=== PATIENT | male | born 1955 | race Caucasian/White ===

== ENCOUNTER → 2021-06-01 08:07 | Outpatient (CLI) | payer BC, SELFPAY | PROVIDERS: PCP Family Medicine; Visit Provider Family Medicine | DX: Z20.822 Contact with and (suspected) exposure to COVID-19 (principal) | CPT/HCPCS: C9803; U0003; U0005 ==

== ENCOUNTER → 2021-06-05 08:31 | Outpatient (CLI) | payer BC, SELFPAY | PROVIDERS: PCP Family Medicine; Visit Provider Nurse Practitioner | DX: Z20.822 Contact with and (suspected) exposure to COVID-19 (principal) | CPT/HCPCS: C9803; U0003; U0005 ==

== ENCOUNTER → 2021-06-07 14:23 | Outpatient (CLI) | payer BC, SELFPAY | PROVIDERS: PCP Family Medicine; Visit Provider Family Medicine | DX: Z20.822 Contact with and (suspected) exposure to COVID-19 (principal) | CPT/HCPCS: C9803; U0003; U0005 ==

== ENCOUNTER → 2021-06-13 11:16 | Outpatient (CLI) | payer BC, SELFPAY | PROVIDERS: PCP Family Medicine; Visit Provider Family Medicine | DX: Z20.822 Contact with and (suspected) exposure to COVID-19 (principal) | CPT/HCPCS: C9803; U0003; U0005 ==

== ENCOUNTER → 2021-12-02 11:38 | Outpatient (CLI) | payer BC, SELFPAY | PROVIDERS: PCP Family Medicine; Visit Provider Family Medicine | DX: U07.1 COVID-19 (principal) | CPT/HCPCS: C9803; U0003; U0005 ==

== ENCOUNTER → 2021-12-25 07:44 | Outpatient (CLI) | payer BC, SELFPAY ==
--- NOTE | 2021-12-25 07:48 | CA_ITS ---
APPROVED REPORT EXAM: Comprehensive 2D, Doppler, and color-flow Echocardiogram Bike Mechanic: Svitlana Almaraz CRT Ht: 5 ft 11 in Wt: 210lbs BSA: 2.15 BP: 130/80 mmHg Indications: Hypertension/HDD 2D Dimensions LVOT 2.10 cm (M/F) 1.5-2.5 LA Volume 54.70 mL LA Volume Index 25.40 mL/m2 (M/F) 16-34 M-Mode Dimensions RVDd 2.40 cm (0.9-2.6) LA Diam 4.84 cm (1.9-4.0) LVDd 5.44 cm (3.5-5.7) Ao Diam 3.66 cm (2.0-3.7) LVDs 3.40 cm (3.5-5.7) IVSd 2.11 cm (0.6-1.1) PWd 1.11 cm (0.6-1.1) EF (Teich) 67.00% FS 37.50% EDV (Teich) 143.70 mL TAPSE 2.98 (<1.7) ESV (Teich) 47.40 mL LV Diastology E Decel Time 127.00 (160-240 msec) E/A Ratio 1.83 MED E' 6.90 (< 7 cm/sec) MED A' 10.20 cm/s E'/MED E' Ratio 14.88 (>14) LAT E' 6.60 (<10 cm/sec) LAT A' 9.30 cm/s E/LAT E' Ratio 15.56 (>14) Aortic Valve LVOT Max 169.00 (70-110 cm/s) LVOT VTI 33.24 cm AoV Peak Ivan. 182.00 (50-130 cm/s) AO Peak GR. 13.30 mmHg AO Mean GR. 5.70 (<5 mmHg) AO VTI 34.25 (18-25 cm) BOLIVAR (VTI) 3.36 (2.5-4.5 cm2) Mitral Valve MV E Max Ivan. 103.00 (40-130 cm/s) MV A Velocity 56.00 (40-130 cm/s) E/A Ratio 1.83 MV Decel. Time 127.00 (160-240 ms) MV PHT 37.00 ms Pulmonary Valve PV Peak Velocity 192.00 (50-150 cm/s) Tricuspid Valve TR P. Velocity 314.00 cm/s RAP Estimate 10.00 mmHg RVSP 49.50 mmHg Left Ventricle Weekly difficult study because of the patient factors and poor acoustic windows. Left atrium is mildly enlarged, left ventricle is normal size, mild concentric left ventricular hypertrophy, estimated ejection fraction 55% with no regional wall motion abnormality, diastolic parameters are inconclusive. Right Ventricle Right atrium and right ventricle are mildly enlarged with normal contractility. Aortic Valve Aortic valve is minimally thickened and fibrosed there is no aortic stenosis aortic insufficiency. Mitral Valve Mitral valve grossly normal, there is trace mitral regurgitation. Tricuspid Valve Tricuspid valve grossly normal, there is trace tricuspid regurgitation, tricuspid regurgitation jet velocity is inadequate for calculation of the right ventricular systolic pressure. Pulmonic Valve Pulmonic valve is poorly visualized. Great Vessels Aortic root is normal size. Inferior vena cava is poorly visualized. Pericardium No significant pericardial effusion noted. Conclusion 1. Technically difficult study because of the patient factors and poor acoustic windows. 2. Mild biatrial enlargement, normal left ventricular size, mild concentric left ventricular hypertrophy, estimated ejection fraction 55% with no regional wall motion abnormality, diastolic parameters are inconclusive. 3. Mildly enlarged right ventricle with normal contractility. 4. Trace mitral and tricuspid regurgitation. 5. No significant pericardial effusion noted. Electronically signed by : Kerwin Gonzáles MD 12/25/2021 20:05:38
--- NOTE | 2021-12-25 07:49 | CA_ITS ---
FINAL REPORT TECHNIQUE: Color Doppler, duplex Doppler and palmer scale sonography of the bilateral neck arterial vasculature was performed. Velocities were measured in the carotid arteries. Stenosis evaluation based on the validated velocity criteria. CLINICAL HISTORY: .Bruit, HTN FINDINGS: The peak systolic velocity of the right common carotid artery is 162 cm/s. The peak systolic velocity of the right internal carotid artery is 93 cm/s and end diastolic velocity 18 cm/s. The ICA/CCA ratio is 1.0. No significant plaque is present. The right external carotid artery is patent. The right vertebral artery is patent with antegrade flow. The peak systolic velocity of the left common carotid artery is 95 cm/s. The peak systolic velocity of the left internal carotid artery is 102 cm/s and end diastolic velocity 33 cm/s. The ICA/CCA ratio is 1.2. No significant plaque is present. The left external carotid artery is patent.The left vertebral artery is patent with antegrade flow. IMPRESSION: No evidence of bilateral carotid stenosis. Bilateral patent vertebral arteries with antegrade flow. Reviewed, Interpreted and Dictated by David Lopez III, MD Transcribed by Isatu Joshua Authenticated and . [facility]
== END ==
PROVIDERS: PCP Family Medicine; Visit Provider Family Medicine
DX: I35.8 Other nonrheumatic aortic valve disorders (principal); R09.89 Other specified symptoms and signs involving the circulatory and respiratory systems
CPT/HCPCS: 93306; 93880

== ENCOUNTER 2022-08-22 06:38 | Day surgery (SDC) | payer BC, SELFPAY ==
[2022-08-20 13:55] VITALS: BMI 28.5
[2022-08-22 07:07] VITALS: BP 155/78; PULSE 68; RESP 18; TEMP 36.9; O2SAT 98
--- NOTE | 2022-08-22 07:17 | P.PN_ITS ---
[facility] Disclaimer: The information contained in this section may have been updated after the patient was seen, as this information can be updated by other users. Medical History Allergies Hypertension Surgical History History of appendectomy Family History Other Family history of acute heart failure Family history of cancer Social History Smoking Status: Never smoker alcohol intake: never substance use type: denies use current occupational status: employed Travel in the last 8 weeks: None household members: family housing: house marital status: education level: high school caffeine: Yes special brenda needs: No agree to transfusion: No do you feel safe at home: Yes victim of physical abuse: No victim of emotional abuse: No victim of sexual abuse: No would you like helpful sources: No [facility] Anesthesia Checklist Patient Identification Patient Identification: Arm Band Structural Data Admitted From: Home Planned Operative Procedure/s: colonoscopy Consent for Planned Operative Procedure(s) Verified: Yes Verified Documents: Surgical Consent and History and Physical NPO Status Verified Time NPO: 00:00 Additional verifications Anesthesia Reactions: No Airway Assessment C-Spine Mobility Assessed: Yes TMJ Mobility Assessed: Yes Dentition: Good Dentition Neurological Assessment Level of Consciousness: Awake and Alert Anesthesia Plan Anesthesia Risk discussed: Yes Anesthesia Plan: Verified ASA Class: II Anesthesia Type: MAC
[2022-08-22 07:23] VITALS: O2SAT 98
--- NOTE | 2022-08-22 08:09 | HMH.SCOPE ---
Procedure: Date: 08/22/22 Patient Date of :: 1955 Procedure Performed:: Total colonoscopy to terminal ileum with polypectomy using snare and biopsy Indications:: Patient is a 66-year-old male. He has had a couple previous colonoscopies in [place]. Exact details are unknown. Apparently first colonoscopy he had a large polyp. He was scheduled for follow-up colonoscopy Performing Provider:: David Novoa MD Referring Provider:: Jesus Ornelas Sedation:: MAC sedation Procedure:: Patient history was obtained and appropriate physical examination was performed. Patient's medications and allergies were reviewed. Informed consent was obtained after explaining the benefits, alternatives, and risks of the procedure including, but not limited to, bleeding, perforation, missed lesions, and adverse reaction to anesthesia medications. Patient was transported to endoscopy procedure room. Patient was connected to monitoring devices. Throughout the procedure the patient's blood pressure, pulse, and oxygen saturations were monitored continuously. Patient identification and planned procedure were verified by the staff. Patient was positioned in lateral decubitus position. Digital anorectal exam was performed. Variable stiffness Olympus colonoscope was inserted and advanced under direct visualization to the cecum. Adequacy of the colonic preparation was noted. The colonoscope was advanced a short distance into the terminal ileum. The colonoscope was then slowly withdrawn while carefully examining the color, texture, anatomy, and integrity of the mucosoa circumferentially. Within the rectum retroflexion was performed. Colonoscope was then withdrawn. Findings:: Colonic preparation was good although there was some liquid stool which was suctioned free. In the proximal transverse colon there were a couple of adenomatous polyps adjacent to 1 another removed with cold cutting snare at once. In the distal transverse colon there was a diminutive mucosal irregularity which was removed with a biopsy. Descending colon there was an adenomatous appearing sessile polyp removed with cold snare and adjacent probable polyp removed with biopsy forceps. There were multiple hyperplastic appearing rectosigmoid polyps removed with biopsy forceps. He had pandiverticulosis. Impression: Pandiverticulosis Polyps as noted above (total of 9 possible polyps removed however rectosigmoid polyps appeared hyperplastic) Recommendations:: Follow-up colonoscopy pending pathology. Potentially 3 years Complications:: None immediately apparent Estimated blood obtained (mL): 2
[2022-08-22 08:10] VITALS: BP 124/76; PULSE 81; RESP 14; TEMP 36.4; O2SAT 92
[2022-08-22 08:20] VITALS: BP 122/78; PULSE 81; RESP 15; O2SAT 92
[2022-08-22 08:30] VITALS: BP 125/74; PULSE 71; RESP 16; O2SAT 96
[2022-08-22 08:39] VITALS: BP 142/82; PULSE 75; RESP 17; O2SAT 95
== END 2022-08-22 08:41 | disposition home or self-care (01) ==
PROVIDERS: PCP Family Medicine; Visit Provider Surgery
PROC: 0DJD8ZZ Inspection of Lower Intestinal Tract, Via Natural or Artificial Opening Endoscopic (ICD-10-PCS; CPT 45380; principal; 2022-08-22 07:30)
DX: Z12.11 Encounter for screening for malignant neoplasm of colon (principal); Z86.010 Personal history of colon polyps; D12.3 Benign neoplasm of transverse colon; D12.4 Benign neoplasm of descending colon; D12.7 Benign neoplasm of rectosigmoid junction; Z79.899 Other long term (current) drug therapy
CPT/HCPCS: 45380; 45385; 88305; J2704

== ENCOUNTER 2023-08-12 11:41 | Outpatient (CLI) | payer MEDICARE, BC, SELFPAY ==
--- NOTE | 2023-08-12 | CA_ITS ---
APPROVED REPORT Exam: Exercise Treadmill Technologist: Sabrina Winter Ht: 6 ft 0 in Wt: 234 lbs BSA: 2.28 m2 HR: 63 bpm BP: 156/78 mmHg Rhythm: NSR Indications: Chest pain Medical History Medications: Losartan,,,,, TAMSULOSIN,,,,, Montelukast,,,,, Acetaminophen,,,,, Latanoprost,,,,, Finasteride,,,,, INdapamide,,,,, Vitamin B Complex,,,,, TUmeric,,,,, FluTICASONE Propionate,,,,, Timolol maleate,,,,, Stress Test Details Test: Curt HR Resting HR: 80 bpm Max Heart Rate (APMHR): 154 bpm Max HR Achieved: 141 bpm Target HR (85% APMHR): 131 bpm % of APMHR: 92 Recovery HR: 91 bpm HR response to stress: Normal HR response to stress BP Resting BP: 156.0/78.0 mmHg Max BP: 208.0/88.0 mmHg Recovery BP: 161.0/88.0 mmHg BP response to stress: Abnormal hypertensive response to stress. ECG Resting ECG: Normal sinus rhythm Stress EC.[address] depression Arrhythmia: Occasional PVCs Recovery ECG: Return to baseline within 3 minutes of recovery Recovery Arrhythmia: Occasional PVCs Clinical Exercise duration: 06:00 min Highest Stage Achieved: Exercise capacity: 7.0 METs Overall Exercise Capacity for Age: Average Stress ECG Conclusion The patient was able to exercise for a total of 6 minutes, 0 seconds. He achieved a total of 7.0 METS. He has average exercise capacity compared to age and sex matched peers. He has normal HR, but exaggerated hypertensive BP, response to exercise. The test was eventually stopped due to dyspnea and generalized fatigue. Symptoms: No chest pain. Arrhythmias/Ectopy: Occasional PVC. ST-T Changes: Within normal ST response to exercise. Conclusion: Average exercise capacity. Hypertensive BP response to exercise. Normal GXT. Myoview images reported separately. Test Summary REST . . . . . . . Sitting REST . . . . . . . Standing REST 07:30 0.0 0.0 80 . 156/ 78 . . Stage 1 01:00 10.0 1.7 108 . . . . Stage 1 02:00 10.0 1.7 115 . . . . Stage 1 03:00 10.0 1.7 112 . 188/ 80 . . Stage 2 01:00 12.0 2.5 126 . . . . Stage 2 . . . . . . . Myoview Injected Stage 2 02:00 12.0 2.5 135 . . . . Stage 2 03:00 12.0 2.5 140 . . . Stop exercise at 06:00 RECOVERY 01:00 0.0 0.0 115 . . . . RECOVERY 02:00 0.0 0.0 91 . 208/ 88 . . RECOVERY 03:00 0.0 0.0 93 . 173/ 87 . . RECOVERY 04:00 0.0 0.0 91 . 173/ 87 . . RECOVERY 05:00 0.0 0.0 88 . 161/ 88 . . RECOVERY 05:23 0.0 0.0 89 . 161/ 88 . . Electronically signed by : Nancy Goldstein MD 08/13/2023 11:18:01
--- NOTE | 2023-08-12 11:49 | NM_ITS ---
APPROVED REPORT Exam: Nuclear Stress Test Indication: HTN, FM HX, C.P. Patient Location: Outpatient Stress Tech: Sabrina Winter HI Tech:Alissa SherwoodRENAE RT (R)(N)(M) Ht: 6 ft 1 in Wt: 240 lbs HR: 63 bpm BP: 156/78 mmHg BSA: 2.33 m2 Rhythm: NSR TID: 0.88 BMI: 31.6 History: HTN, FM HX, C.P. Procedure: Patient exercised on Curt protocol 6:00 minutes and sec, resting heart rate 63 bpm, resting blood pressure 156/78 mmHg, with exercise maximum heart rate achived was 136 bpm which is 92 % of the maximum predicted heart rate and blood pressure was 188/80 mmHg. Test was stopped due to FATIGUE. Patient has average exercise capacity, achieved 7.8 METs of workload on treadmill, the blood pressure response to exercise was hypertensive. Cardiac Stress and Resting SPECT Images: Cardiac Stress and Resting SPECT images were obtained using technetium 99m Myoview 31.5 mCi stress and 10.64 mCi at rest. Resting and stress imaging in supine and prone positions demonstrate no evidence of fixed or reversible perfusion defects. Gated imaging demonstrates normal global and regional LV systolic function. LVEF is calculated at 61%. Conclusion: No evidence of fixed or reversible perfusion defects. Gated imaging demonstrates normal global and regional LV systolic function. LVEF is calculated at 61%. Of note, the patient had an exaggerated hypertensive BP response to exercise (SBP > 200 mmHg). BP control is recommended. Electronically signed by : Nancy Goldstein MD 08/13/2023 11:19:55
--- NOTE | 2023-08-12 12:03 | CA_ITS ---
APPROVED REPORT EXAM: Comprehensive 2D, Doppler, and color-flow Echocardiogram Drywall Stripper: Amita Faust RDCS Ht: 6 ft 0 in Wt: 234lbs BSA: 2.28 BP: 146/80 mmHg Indications: CP,RO,HHD M-Mode Dimensions RVDd 2.94 cm (0.9-2.6) LA Diam 4.72 cm (1.9-4.0) LVDd 6.32 cm (3.5-5.7) LVDs 4.39 cm (3.5-5.7) IVSd 0.89 cm (0.6-1.1) PWd 0.80 cm (0.6-1.1) EF (Teich) 57.00% FS 30.50% EDV (Teich) 202.60 mL ESV (Teich) 87.20 mL LV Diastology E Decel Time 250 (160-240 msec) E/A Ratio 1.3 Mitral Valve MV E Max Ivan. 85.0 (40-130 cm/s) MV A Velocity 68.0 (40-130 cm/s) E/A Ratio 1.25 MV PHT 73.0 ms Left Ventricle The left ventricle is normal size. The left ventricular systolic function is normal. The left ventricular ejection fraction is within the normal range. There is normal left ventricular wall thickness. There is normal LV segmental wall motion. The left ventricular diastolic function is normal. LVEF is 55%. Right Ventricle Right ventricle is mildly to moderately dilated. The right ventricular systolic function is normal. There is increased RV wall thickness. Atria The left atrium size is normal. Right atrium is mildly dilated. The interatrial septum is not well visualized. Aortic Valve The aortic valve opens well. There is no aortic valvular stenosis. Mild aortic regurgitation. Mitral Valve The mitral valve is normal in structure. No evidence of mitral valve stenosis. Trace mitral regurgitation. Tricuspid Valve The tricuspid valve leaflets are thin and pliable. Mild tricuspid regurgitation. RVSP is 25 mmHg + RA pressure. Pulmonic Valve The pulmonary valve is normal in structure. Trace pulmonic regurgitation. Great Vessels The aortic root is normal in size. The ascending aorta is mildly dilated, measuring 3.8 cm in diameter. The IVC is not well visualized. Pericardium There is no pericardial effusion. Other Information Study Quality: Fair Conclusion Normal LV systolic function. Mild to moderate RV dilation with normal RV function. Mild AI. Mild TR. Ascending aorta mildly dilated (diameter 3.8 cm). Electronically signed by : Nancy Goldstein MD 08/15/2023 19:42:04
[2023-08-12] MEDS: ISOTOPE MYOVIEW (PER STUDY) 1 DOSE IV (13:25)
[2023-08-12] MEDS: SODIUM CHLORIDE 0.9% 10ML SYR (RAD ONLY) 10 ML IV ×2 (13:25)
== END 2023-08-12 23:59 ==
PROVIDERS: PCP Family Medicine; Visit Provider Family Medicine
DX: G47.31 Primary central sleep apnea; R07.9 Chest pain, unspecified
CPT/HCPCS: 78452; 93017; 93018; 93306; A9502

== ENCOUNTER 2023-08-28 07:16 | Day surgery (SDC) | payer MEDICARE, BC, SELFPAY ==
[2023-08-27 09:12] VITALS: BMI 34.7
[2023-08-28 07:35] VITALS: BP 154/93; PULSE 62; RESP 18; TEMP 36.3; O2SAT 98
[2023-08-28] MEDS: LACTATED RINGERS 1000ML 1,000 ML 100 ML IV (07:41)
--- NOTE | 2023-08-28 08:01 | HMH.SCOPE ---
Procedure: Date: 08/28/23 Patient Date of :: 1955 Procedure Performed:: Total colonoscopy to terminal ileum with numerous polypectomy using snare and biopsy forceps Indications:: Patient is a 67-year-old male with a family history of colon cancer. He has previously had colonoscopies in [place]. Exact details are unknown. I performed colonoscopy approximately 1 year ago on 08/22/2022 at which time he had 6 tubular adenomas and 2 sessile serrated adenomas. Performing Provider:: David Novoa MD Referring Provider:: Jesus Ornelas Sedation:: MAC sedation Procedure:: Patient history was obtained and appropriate physical examination was performed. Patient's medications and allergies were reviewed. Informed consent was obtained after explaining the benefits, alternatives, and risks of the procedure including, but not limited to, bleeding, perforation, missed lesions, and adverse reaction to anesthesia medications. Patient was transported to endoscopy procedure room. Patient was connected to monitoring devices. Throughout the procedure the patient's blood pressure, pulse, and oxygen saturations were monitored continuously. Patient identification and planned procedure were verified by the staff. Patient was positioned in lateral decubitus position. Digital anorectal exam was performed. Variable stiffness Olympus colonoscope was inserted and advanced under direct visualization to the cecum. Adequacy of the colonic preparation was noted. The colonoscope was advanced a short distance into the terminal ileum. The colonoscope was then slowly withdrawn while carefully examining the color, texture, anatomy, and integrity of the mucosoa circumferentially. Within the rectum retroflexion was performed. Colonoscope was then withdrawn. . Colonoscope was advanced to the cecum with some minor difficulty due to significant redundancy and floppiness of the sigmoid colon. Colonic preparation was poor to fair. Fair visualization was achieved with high-volume irrigation and suctioning. He had some degree of pandiverticulosis. In the cecum adjacent to the appendiceal orifice there was a small diminutive adenomatous appearing polyp removed with cold snare. In the ascending colon there were a couple of moderate irregular sessile polyps removed with cold snare. In the transverse colon there was a moderate adenomatous polyp removed with cold snare. In the descending colon there were a couple of small polyps removed with cold snare. In proximal sigmoid colon there were a couple of hyperplastic appearing polyps removed with biopsy forceps. The rectosigmoid there were hyperplastic appearing polyps removed with biopsy forceps. . Findings:: Fair colonic preparation despite high-volume trans colonoscopic irrigation and suctioning Polyps as noted above, he had a total of 10 polyps. 6 of these appeared likely adenomatous. Recommendations:: Follow-up colonoscopy pending pathology. Likely 2 years given the fair preparation and multiple polyps. Complications:: None immediately apparent Estimated blood obtained (mL): 2 Colonoscopy Component Colonoscopy Component Was a colonoscopy performed during today's procedure?: Yes Recommended follow up colonoscopy of at least 10 years?: No If no, follow up colonoscopy recommended in ___ years?: 2 Reason for not recommending >/= 10 yr follow-up interval?: See above
--- NOTE | 2023-08-28 08:07 | EXP.ANES.CKL ---
[facility] Disclaimer: The information contained in this section may have been updated after the patient was seen, as this information can be updated by other users. Medical History Allergies Hypertension RO (obstructive sleep apnea) Surgical History History of appendectomy Family History Other Family history of acute heart failure Family history of cancer Social History Smoking Status: Never smoker alcohol intake: never substance use type: denies use current occupational status: retired Travel in the last 8 weeks: None household members: family housing: house marital status: education level: high school caffeine: Yes special brenda needs: No agree to transfusion: No do you feel safe at home: Yes victim of physical abuse: No victim of emotional abuse: No victim of sexual abuse: No would you like helpful sources: No [facility] Anesthesia Checklist Patient Identification Patient Identification: Arm Band and Verbal (Name & ) Structural Data Admitted From: Home Planned Operative Procedure/s: Colonoscopy Consent for Planned Operative Procedure(s) Verified: Yes NPO Status Verified Time NPO: 00:00 Additional verifications Anesthesia Reactions: No Airway Assessment Mallampati Score:: Class IV C-Spine Mobility Assessed: Yes TMJ Mobility Assessed: Yes Dentition: Good Dentition Neurological Assessment Level of Consciousness: Awake Hx Seizures: No Numbness or tingling in extremities: No Anesthesia Plan Anesthesia Risk discussed: Yes Anesthesia Plan: Verified ASA Class: II Anesthesia Type: MAC
[2023-08-28 08:16] VITALS: O2SAT 98
[2023-08-28 08:59] VITALS: BP 119/76; PULSE 70; RESP 14; TEMP 36.2; O2SAT 91
[2023-08-28 09:09] VITALS: BP 115/70; PULSE 70; RESP 16; O2SAT 94
[2023-08-28 09:19] VITALS: BP 107/75; PULSE 76; RESP 17; O2SAT 94
[2023-08-28 09:22] VITALS: BP 128/79; PULSE 59; RESP 17; O2SAT 95
== END 2023-08-28 09:23 | disposition home or self-care (01) ==
PROVIDERS: PCP Family Medicine; Visit Provider Surgery
PROC: 0DJD8ZZ Inspection of Lower Intestinal Tract, Via Natural or Artificial Opening Endoscopic (ICD-10-PCS; CPT 45378; principal; 2023-08-28 08:30)
DX: Z12.11 Encounter for screening for malignant neoplasm of colon (principal); Z86.010 Personal history of colon polyps; K63.5 Polyp of colon; D12.2 Benign neoplasm of ascending colon; K57.90 Diverticulosis of intestine, part unspecified, without perforation or abscess without bleeding; Z80.0 Family history of malignant neoplasm of digestive organs
CPT/HCPCS: 45380; 45385; 88305; J2704

== ENCOUNTER 2024-11-14 15:52 | Outpatient (CLI) | payer MEDICARE, BC, SELFPAY ==
--- OUTSIDE RECORDS SUMMARY | 2024-11-14 15:56 | XMS_ITS ---
Author Organization Unknown [facility] Start Date Provider Encounter for Check-up [id number] [facility]
--- NOTE | 2024-11-14 15:58 | XR_ITS ---
FINAL REPORT CLINICAL HISTORY: pain x 1 month, no known trauma FINDINGS: LEFT FOOT Three views were obtained. There is no fracture or dislocation. There are mild degenerative changes. No soft tissue abnormality is identified. IMPRESSION: No acute process. Reviewed, Interpreted and Dictated by Mikey Otero MD Transcribed by Sonal Preston Authenticated and [facility]
--- NOTE | 2024-11-14 15:58 | XR_ITS ---
FINAL REPORT CLINICAL HISTORY: EFFUSION LEFT KNEE FINDINGS: LEFT KNEE Three views were obtained. There is no fracture or dislocation. There are mild degenerative changes. No soft tissue abnormality is identified. IMPRESSION: No acute process. Reviewed, Interpreted and Dictated by Mikey Otero MD Transcribed by Sonal Preston Authenticated and . [facility]
--- NOTE | 2024-11-14 15:58 | XR_ITS ---
FINAL REPORT CLINICAL HISTORY: pain x 1 month, no known trauma FINDINGS: RIGHT FOOT Three views were obtained. There is no fracture or dislocation. The joint spaces appear normal. No soft tissue abnormality is identified. IMPRESSION: No acute process. Reviewed, Interpreted and Dictated by Mikey Otero MD Transcribed by Sonal Preston Authenticated and [facility]
== END 2024-11-14 23:59 | disposition home or self-care (01) ==
LOC: RAD 15:54
PROVIDERS: PCP Family Medicine; Visit Provider Family Medicine
DX: M79.672 Pain in left foot (principal); M79.671 Pain in right foot; M25.462 Effusion, left knee
CPT/HCPCS: 73562; 73630

== ENCOUNTER 2025-03-10 07:28 | Outpatient (CLI) | payer MEDICARE, BC, SELFPAY ==
--- OUTSIDE RECORDS SUMMARY | 2024-07-11 06:15 | XMS_ITS ---
Author Organization [facility] Address [address] [facility] [address] [facility] [address] [place] [id number] Care Team Providers Care Mountain Or Glacier Guide Name Role Phone Silas Ornelas Primary Care Provider Allergies No Known Allergies Results Component Value Reference Range Notes Influenza Screen (in house) Reviewed date:07/11/2024 11:53:49 AM Interpretation:Negative Performing Lab: Notes/Report: Negative results Neg CBC Fingerstick (in house) Reviewed date:07/11/2024 11:54:35 AM Interpretation: Performing Lab: Notes/Report: wbc 4.9 3.5 - 10 lym 18.7% 15 - 50 mid 6.9% 2 - 15 gran 74.4% 35 - 80 rbc 4.13 3.5 - 5.5 hgb 13.0 11.5 - 16.5 hct 38.8 35 - 55 mcv 94.0 75 - 100 mch 31.6 25 - 35 mchc 33.6 31 - 38 plat 250 100 - 400 Covid test (in house) Reviewed date:07/11/2024 11:54:12 AM Interpretation:Negative Performing Lab: Notes/Report: Negative Result: Neg REASON FOR VISIT cough Medications Medication SIG (Take, Route, Frequency, Duration) Notes Start Date End Date Status Ketoconazole 2 % 1 trena applied topica lly once a day Active Singulair 10 MG 1 tab(s) orally once a day; Duration: 90 days Active Sildenafil Citrate 20 MG 3 Orally As nee ded; Duration: 30 day(s) Active Fluticasone Propionate 50 MCG/ACT INSTILL 2 SPRAYS IN EACH NOSTRIL EVERY DAY; Duration: 30 Active CPAP machine and supplies as directed 10/22/2023 Active Latanoprost 0.005 % 1 drop into each eye in the evening Ophthalmic at bedtime Active Timolol Maleate (Once-Daily) 0.5 % 1 drop into each eye Ophthalmic each morning Active Turmeric Curcumin 500 MG 2 cap(s) Orally daily Active B-12 1000 MCG 1 tab(s) orally once a day; Duration: 30 day(s) 06/03/2021 Active Indapamide 2.5 mg 1 tablet in the morn ing Orally Once a day; Duration: 90 days Active Tamsulosin HCl 0.4 MG 1 cap(s) orally on ce a day; Duration: 90 days Active amLODIPine Besylate 2.5 MG 1 tablet Oral ly Once a day; Duration: 90 days Active Losartan Potassium 100 MG 1 tab(s) orall y once a day; Duration: 90 days Active Ventolin HFA 108 (90 Base) MCG/ACT 2 inhalations Inhalation Three times a day 07/11/2024 Active Vital Signs Blood pressure systolic 130 mm Hg 07/11/19 25 Blood pressure diastolic 80 mm Hg 025 Heart Rate 63 /min 07/11/2024 Height 71 in 07/11/2024 Weight 239.6 lbs 07/11/2024 BMI 33.41 kg/m2 07/11/2024 Encounters Encounter Location Date Provider [facility] [address] [facility] [address] [id number] 07/11/2024 Silas Ornelas Acute cough R05.1 ; Aortic heart murmur I35.8 ; RO on CPAP G47.33 and Primary hypertension I10 Assessments Encounter Date Diagnosis (ICD Code) Assessment Notes Treatment Notes Treatment Clinical Notes Section Notes 07/11/2024 Acute cough (ICD-10 - R05.1) 07/11/2024 Aortic heart murmur (ICD-10 - I35.8) 07/11/2024 RO on CPAP (ICD-10 - G47.33) 07/11/2024 Primary hypertension (ICD-10 - I10) Plan Of Treatment Medication Medication Name Sig Start Date Stop Date Notes Indapamide 2.5 mg 1 tablet in the morn ing Orally Once a day; Duration: 90 days Ventolin HFA 108 (90 Base) MCG/ACT 2 inhalations Inhalation Three times a day 07/11/2024 Next Appt Details Follow Up: 4 Weeks, Reason: Provider Name:Silas Chunalbert Lee er, 05/29/2025 10:15:00 AM, [address], [address], [place], [place], [id number], Progress Notes * MILLIE GONZALESDOB:1955 ( 69 yo M)Acc No.[id number]:07/11/2024 Progress Notes Patient: MILLIE JONES Provider: Silas Ornelas M.D. :1955 A ge:68 Y S ex:Male Date:07/11/2024 Address:[facility] [address] [facility], [facility], [id number] Subjective: * Chief Complaints: * 1 . Cough. * HPI: E NT/respiratory: The pt is here today with c/o sinus drainage, scratchy throat and dry cough for the past week. Pt denies any fever. 68 year old male presents with c/o sore throat. c/o cough. c/o post nasal drainage. Denies : Fever. D enies : Chest Pain. D enies : Short of Breath. * ROS: D ERMATOLOGY: no R yisel. n o H katelynn. G ASTROENTEROLOGY: no N ausea. n o V omiting. n o D iarrhea.? U ROLOGY: no D ifficulty urinating. n o B lood in urine. * Medical History: H ypertension, Seasonal allergies, Osteoarthritis, BPH, Carotid duplex 11/18/2021, Echocardiogram 11/18/2021. * Surgical History: C rushed Kidney Stones , Appendectomy , colonoscopy with polyp . * Family History: F ather: 84 yrs, diagnosed with Hypertension. M other: alive, diagnosed with Hypertension, Heart Disease. P aternal Grand Father: . P aternal Grand Mother: , diagnosed with Stroke. M aternal Grand Father: . M aternal Grand Mother: , diagnosed with Stroke. Father of sepsis, cellulitis of leg. * Social History: C affeine: yes, frequency:two or three soft drinks or tea daily. Exercise: yes. Home smoke detector use: yes. Past smoking status: never smoked. * Medications: T aking Turmeric Curcumin 500 MG Capsule 2 cap(s) Orally daily , Taking Timolol Maleate (Once-Daily) 0.5 % Solution 1 drop into each eye Ophthalmic each morning , Taking Latanoprost 0.005 % Solution 1 drop into each eye in the evening Ophthalmic at bedtime , Taking B-12 1000 MCG Tablet 1 tab(s) orally once a day , Taking Ketoconazole 2 % Cream 1 trena applied topically once a day , Taking Indapamide 2.5 mg Tablet 1 tablet in the morning Orally Once a day , Taking CPAP machine and supplies as directed , Taking Fluticasone Propionate 50 MCG/ACT Suspension INSTILL 2 SPRAYS IN EACH NOSTRIL EVERY DAY , Taking Sildenafil Citrate 20 MG Tablet 3 Orally As needed , Taking Singulair 10 MG Tablet 1 tab(s) orally once a day , Taking Losartan Potassium 100 MG Tablet 1 tab(s) orally once a day , Taking amLODIPine Besylate 2.5 MG Tablet 1 tablet Orally Once a day , Taking Tamsulosin HCl 0.4 MG Capsule 1 cap(s) orally once a day , Discontinued Zithromax Z-Janak 250 MG Tablet as directed Orally , Medication List reviewed and reconciled with the patient * Allergies: N .K.D.A. Objective: * Vitals: W t:239.6, Temp:98.4, BP:130/80, HR:63, Nurse:JOSE, Ht: 71, BMI:33.41. * Examination: G eneral Examination: General Appearance: N AD. H EENT: u nremarkable.?Oral cavity: n o lesions, mucosa moist and WNL, no erythema. N ghislaine: s upple, no lymphadenopathy. C hest: n ormal shape and expansion. H eart: R SR. L ungs: c lear to auscultation, no wheezes or rales. A bdomen: soft and nontender, no organomegaly or masses. N eurologic Exam: I ntact, gait normal. S kin: n ormal. P eripheral pulses: n ormal . B ack: mild dorsal kyphosis. E xtremities: n o leg edema. ? Assessment: * Assessment: 1. A cute cough - R05.1 (Primary) 2 . A ortic heart murmur - I35.8 ? 3 . O SA on CPAP - G47.33 4 . P rimary hypertension - I10 Plan: * Treatment: Value Reference Range r esults Neg * Tri Gonzales 07/11/2024 10: 45:14 AM > , Provider reviewed results while patient in office. ?LAB: CBC Fingerstick (in house) (Collection Date & Time - 07/11/2024)* Value Reference Range w bc 4.9 3.5 - 10 * l ym 18.7% 15 - 50 * m id 6.9% 2 - 15 * g ran 74.4% 35 - 80 * r bc 4.13 3.5 - 5.5 * h gb 13.0 11.5 - 16.5 * h ct 38.8 35 - 55 * m cv 94.0 75 - 100 * m ch 31.6 25 - 35 * m chc 33.6 31 - 38 * p lat 250 100 - 400 * Tri Gonzales 07/11/2024 10: 38:53 AM > , Provider reviewed results while patient in office. ?LAB: Covid test (in house) (Collection Date & Time - 07/11/2024)?Negative* Value Reference Range R esult: Neg * Tri Gonzales 07/11/2024 10: 44:49 AM > , Provider reviewed results while patient in office. 2.?Primary hypertension? Refill Indapamide Tablet, 2.5 mg, 1 tablet in the morning, Orally, Once a day, 90 days, 90 Tablet, Refills 1.?? * Procedure Codes: 8 7804 Flu Test- Nasal Swab, Modifiers: QW , 24849 COVID TEST IN HOUSE, Modifiers: QW , 41555 CAPILLARY BLOOD DRAW, 16685 CBC WITH AUTO DIFF * Follow Up: 4 Weeks * Images: Billing Information: * Visit Code: 44986 Office Visit, Est Pt., Level 4. * Procedure Codes: 89811 Flu Test- Nasal Swab. Modifiers: QW 16528 COVID TEST IN HOUSE. Modifiers: QW 56551 CAPILLARY BLOOD DRAW. 73896 CBC WITH AUTO DIFF. * Electronic signature of Silas Ornelas MD on 03/10/2025 at 07:32 AM EDT Sign off status: Pending * Provider: Silas Ornelas M.D. Date: 0 07/11/2024 Generated for Lisai jorden/Bob/eTnidasmitting on: 0 03/10/2025 07:32 AM EDT History and Physical Notes * HPI (History of Present Illness) Category Sub-Category Detail Notes Category Not es ENT/respiratory sore throat Short of Breath Chest Pain cough Fever post nasal drainage Examination Category Sub-Category Detail Notes Category Not es General Examination HEENT: unremarkable Heart: RSR Lungs: clear to auscultatio n, no wheezes or rales Abdomen: soft and nontender, no organomegaly or masses Extremities: no leg edema General Appearance: NAD Skin: normal Neurologic Exam: Intact, gait normal Neck: supple, no lymphaden opathy Oral cavity: no lesions, mucosa m oist and WNL, no erythema Peripheral pulses: normal Back: mild dorsal kyphosis Genitalia: Chest: normal shape and exp ansion
--- OUTSIDE RECORDS SUMMARY | 2024-08-26 06:00 | XMS_ITS ---
Author Organization [facility] Address [address] [place] [phone] Care Team Providers Care Thermal Cutter Helper Name Role Phone Silas Ornelas Primary Care Provider Allergies No Known Allergies Results Component Value Reference Range Notes P-Comprehensive Metabolic Pa gloria (CMP) Reviewed date:08/29/2024 11:39:27 AM Interpretation:Normal Performing Lab: Notes/Report: Test performed by [facility] [address] [place], [place] [address] [address] , [address], [place] [address] Stanislav Bender MD, Lace Winder CLIA: [id number] Sodium 142 135-145 mmol/L Potassium 4.0 3.5-5.3 mmol/L Chloride 105 97-108 mmol/L CO2 27 22-32 mmol/L Glucose 97 65-99 mg/dL BUN 21 8-23 mg/dL Creatinine 1.05 0.70-1.30 mg/dL Calcium 9.8 8.6-10.4 mg/dL eGFR by Creatinine 77 >59 mL/min/1.73m2 Protein 6.6 6.0-8.3 g/dL Albumin 4.4 3.5-5.3 g/dL Alkaline Phosphatase 57 40-129 IU/L ALT (SGPT) 33 <5-55 IU/L AST (SGOT) 25 <5-46 IU/L Bilirubin, Total 0.4 <0.2-1.2 mg/dL A/G Ratio 2.0 1.1-2.5 P-PSA Reviewed date:08/29/2024 11:39:27 AM Interpretation:Normal Performing Lab: Notes/Report: Test performed by [facility] [address] [facility] , [address], [place] [address] Stanislav Bender MD, Lace Winder CLIA: [id number] PSA 0.53 <4.00 ng/mL Please note this is an ultrasensitive PSA assay with a lower limit of detection of 0.014 ng/mL. This test is performed by the [employer] ECLIA methodology. Values obtained with different assay methods or kits cannot be directly compared. REASON FOR VISIT 6 month check Medications Medication SIG (Take, Route, Frequency, Duration) Notes Start Date End Date Status Promethazine-DM 6.25-15 MG/5ML 5 ml orally every 6 hours prn 07/13/2024 Active Turmeric Curcumin 500 MG 2 cap(s) Orally daily Active Ventolin HFA 108 (90 Base) MCG/ACT 2 inhalations Inhalation Three times a day 07/11/2024 Not-Taking Indapamide 2.5 mg 1 tablet in the morn ing Orally Once a day; Duration: 90 days Active Medrol 4 MG as directed orally daily; Duration: 6 days 07/13/2024 Active Sildenafil Citrate 20 MG 3 Orally As nee ded; Duration: 30 day(s) Active Singulair 10 MG 1 tab(s) orally once a day; Duration: 90 days Active Losartan Potassium 100 MG 1 tab(s) orall y once a day; Duration: 90 days Active amLODIPine Besylate 2.5 MG 1 tablet Orally Once a day; Duration: 90 days Active Tamsulosin HCl 0.4 MG 1 cap(s) orally on ce a day; Duration: 90 days Active Ketoconazole 2 % 1 trena applied topica lly once a day Active CPAP machine and supplies as directed 10/22/2023 Active Fluticasone Propionate 50 MCG/ACT INSTILL 2 SPRAYS IN EACH NOSTRIL EVERY DAY; Duration: 30 Active Latanoprost 0.005 % 1 drop into each eye in the evening Ophthalmic at bedtime Active B-12 1000 MCG 1 tab(s) orally once a day; Duration: 30 day(s) 06/03/2021 Active Timolol Maleate (Once-Daily) 0.5 % 1 drop into each eye Ophthalmic each morning Active Problems Problem Type SNOMED Code ICD Code Onset Dates Problem Status W/U Status Risk Notes Problem Pulmonary valve disorder (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) 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) Active confirmed Vital Signs Blood pressure systolic 130 mm Hg 08/26/19 25 Blood pressure diastolic 76 mm Hg 025 Heart Rate 67 /min 08/26/2024 Height 71 in 08/26/2024 Weight 240.0 lbs 08/26/2024 BMI 33.47 kg/m2 08/26/2024 Encounters Encounter Location Date Provider Diagnosis [facility] [address] [place] [address] [address] [place], [place] [id number] 08/26/2024 Silas Ornelas Primary hypertension I10 ; Benign prostatic hyperplasia with lower urinary tract symptoms N40.1 ; Aortic heart murmur I35.8 and Pulmonic valve murmur I37.8 Assessments Encounter Date Diagnosis (ICD Code) Assessment Notes Treatment Notes Treatment Clinical Notes Section Notes 08/26/2024 Primary hypertension (ICD-10 - I10) 08/26/2024 Benign prostatic hyperplasia with lower urinary tract symptoms (ICD-10 - N40.1) 08/26/2024 Aortic heart murmur (ICD-10 - I35.8) 08/26/2024 Pulmonic valve murmur (ICD-10 - I37.8) Plan Of Treatment Next Appt Details Follow Up: 6 Months, Reason: Provider Name:Silas Lee er, 05/29/2025 10:15:00 AM, [address] [place] [address], [address], [facility] [place], [phone], Progress Notes * MILLIE GONZALESDOB:1955 ( 69 yo M)Acc No.[id number]:08/26/2024 Progress Notes Patient: MILLIE JONES Provider: Silas Ornelas M.D. :1955 A ge:68 Y S ex:Male Date:08/26/2024 Address:[address] [place] [address], [id number] Subjective: * Chief Complaints: * 1 . 6 month check. * HPI: C ardiology: The patient is here for a check up on Hypertension and Hyperlipidemia. Pt states he is doing good and denies any new concerns. Pt is not fasting. Denies : Chest Pain. D enies : Short of Breath. D enies : Dizziness. D enies : Palpitations. * ROS: D ERMATOLOGY: no R yisel. [...] applied topically once a day , Taking CPAP machine and [...] 1 cap(s) orally once a day , Taking Indapamide 2.5 mg Tablet 1 tablet in the morning Orally Once a day , Taking Medrol 4 MG Tablet Therapy Pack as directed orally daily , Taking Promethazine-DM 6.25-15 MG/5ML Syrup 5 ml orally every 6 hours prn , Not-Taking Ventolin HFA 108 (90 Base) MCG/ACT Aerosol Solution 2 inhalations Inhalation Three times a day , Medication List reviewed and reconciled with the patient * Allergies: N .K.D.A. Objective: * Vitals: W t:240.0, Temp:98.2, BP:130/76, HR:67, Nurse:JOSE, Ht: 71, BMI:33.47. * Examination: G eneral Examination: General Appearance: N AD. H EENT: u nremarkable.?Oral cavity: n o lesions, mucosa moist and WNL, no erythema. N ghislaine: s upple, no lymphadenopathy. C hest: n ormal shape and expansion. H eart: R SR, I think the murmur is more pulmonic athan aortic. L ungs: c lear to auscultation, no wheezes or rales. A bdomen: soft and nontender, no organomegaly or masses. N eurologic Exam: I ntact, gait normal. S kin: n ormal. P eripheral pulses: n ormal . B ack: mild dorsal kyphosis. E xtremities: n o leg edema. Assessment: * Assessment: 1. P rimary hypertension - I10 (Primary) 2 . B enign prostatic hyperplasia with lower urinary tract symptoms - N40.1 3 . A ortic heart murmur - I35.8 ? 4 . P ulmonic valve murmur - I37.8 Plan: * Treatment: Value Reference Range A /G Ratio 2.0 1.1-2.5 - * A lbumin 4.4 3.5-5.3 - g/dL * A lkaline Phosphatase 57 40-129 - IU/L * A LT (SGPT) 33 <5-55 - IU/L * A ST (SGOT) 25 <5-46 - IU/L * B ilirubin, Total 0.4 <0.2-1.2 - mg/dL * B UN 21 8-23 - mg/dL * C alcium 9.8 8.6-10.4 - mg/dL * C hloride 105 97-108 - mmol/L * C O2 27 22-32 - mmol/L * C reatinine 1.05 0.70-1.30 - mg/dL * G lucose 97 65-99 - mg/dL * P otassium 4.0 3.5-5.3 - mmol/L * S odium 142 135-145 - mmol/L * P rotein 6.6 6.0-8.3 - g/dL * e GFR by Creatinine 77 >59 - mL/min/1.73m2 * Tri Gonzales 08/29/2024 11:3 9:10 AM >Patient informed of normal results. 2.?Benign prostatic hyperplasia with lower urinary tract symptoms?LAB: P-PSA (Collection Date & Time - 08/26/2024 10:19 AM)?Normal* Value Reference Range P SA 0.53 <4.00 - ng/mL * Tri Gonzales 08/29/2024 11:3 9:10 AM >Patient informed of normal results. * Procedure Codes: G 2211 Complex e/m visit add on, 3075F SYST BP GE 130 - 139MM HG, 3078F DIAST BP < 80 MM HG * Follow Up: 6 Months * Images: Billing Information: * Visit Code: 22449 Office Visit, Est Pt., Level 4. * Procedure Codes: G2211 Complex e/m visit add on. 3075F SYST BP GE 130 - 139MM HG. 3078F DIAST BP < 80 MM HG. * Electronic signature of Silas Ornelas MD on 03/10/2025 at 07:32 AM EDT Sign off status: Pending * Provider: Silas Ornelas M.D. Date: 0 08/26/2024 Generated for Minna leonardo/Fairena/eTransmitting on: 0 03/10/2025 07:32 AM EDT History and Physical Notes * HPI (History of Present Illness) Category Sub-Category Detail Notes Category Not es Cardiology Short of Breath Chest Pain Palpitations Dizziness Examination Category Sub-Category Detail Notes Category Not es General Examination HEENT: unremarkable Heart: RSR, I think the mur mur is more pulmonic athan aortic Lungs: clear to auscultatio n, no wheezes [...]
--- OUTSIDE RECORDS SUMMARY | 2024-11-14 11:15 | XMS_ITS ---
Author Organization [facility] Address [address] [facility] [address] [place] [id number] Care Team Providers Care Pai Gow Manager Name Role Phone Silas Ornelas Primary Care Provider [place]Rob yanez Unavailable [phone] Allergies No Known Allergies Results Component Value Reference Range Notes X ray : Knee, left Reviewed date:11/16/2024 01:12:32 PM Interpretation:nothing acute Performing Lab: Notes/Report: nothing acute X ray : Foot, right Reviewed date:11/16/2024 01:12:32 PM Interpretation:nothing acute Performing Lab: Notes/Report: nothing acute REASON FOR VISIT knee pain Medications Medication SIG (Take, Route, Frequency, Duration) Notes Start Date End Date Status Ventolin HFA 108 (90 Base) MCG/ACT 2 inhalations Inhalation Three times a day 07/11/2024 Not-Taking Ketoconazole 2 % 1 trena applied topica lly once a day Active Fluticasone Propionate 50 MCG/ACT INSTILL 2 SPRAYS IN EACH NOSTRIL EVERY DAY; Duration: 30 Active Losartan Potassium 100 mg TAKE ONE TABLE T BY MOUTH EVERY DAY; Duration: 90 Active Montelukast Sodium 10 mg TAKE ONE TABLET BY MOUTH EVERY DAY; Duration: 90 Active amLODIPine Besylate 2.5 MG 1 tablet Orally Once a day; Duration: 90 days Active Indapamide 2.5 mg 1 tablet in the morn ing Orally Once a day; Duration: 90 days Active Tamsulosin HCl 0.4 MG 1 cap(s) orally on ce a day; Duration: 90 days Active Sildenafil Citrate 20 MG 3 Orally As nee ded; Duration: 30 day(s) Active Timolol Maleate (Once-Daily) 0.5 % 1 drop into each eye Ophthalmic each morning Active B-12 1000 MCG 1 tab(s) orally once a day; Duration: 30 day(s) 06/03/2021 Active Latanoprost 0.005 % 1 drop into each eye in the evening Ophthalmic at bedtime Active CPAP machine and supplies as directed 10/22/2023 Active Turmeric Curcumin 500 MG 2 cap(s) Orally daily Active Problems Problem Type SNOMED Code ICD Code Onset Dates Problem Status W/U Status Risk Notes Problem BMI 30+ - obesity (274567766) BMI 32.0-32.9,a dult (Z68.32) Active confirmed Vital Signs Blood pressure systolic 132 mm Hg 11/15/19 25 Blood pressure diastolic 72 mm Hg 025 Heart Rate 63 /min 11/14/2024 Height 71 in 11/14/2024 Weight 229.8 lbs 11/14/2024 BMI 32.05 kg/m2 11/14/2024 Encounters Encounter Location Date Provider Diagnosis [address] [place] [id number] 11/14/2024 Rob Cedeño Effusion, left knee M25.462 ; Pain in right foot M79.671 ; Pain in left foot M79.672 and BMI 32.0-32.9,adult Z68.32 Assessments Encounter Date Diagnosis (ICD Code) Assessment Notes Treatment Notes Treatment Clinical Notes Section Notes 11/14/2024 Effusion, left knee (ICD-10 - M25.462) 11/14/2024 Pain in right foot (ICD-10 - M79.671) 11/14/2024 Pain in left foot (ICD-10 - M79.672) Home exercise program provided to patient 11/14/2024 BMI 32.0-32.9,adult (ICD-10 - Z68.32) Plan Of Treatment Treatment Notes Assessment Notes Pain in left foot Home exercise progra m provided to patient Pending Test Test Name Order Date X ray : Foot, left 11/14/2024 Next Appt Details Follow Up: via phone to repo rt progress, Reason: Provider Name:Silas mortensen, 05/29/2025 10:15:00 AM, [address], [place], [id number], Progress Notes * RONEY GONZALESDOB:1955 ( 69 yo M)Acc No.[id number]:11/14/2024 Progress Notes Patient: RONEY JONES Provider: Lizette Cedeño M.D. :1955 A ge:68 Y S ex:Male Date:11/14/2024 Address:[address] [place] [address], [facility] Pcp:Silas Ornelas Subjective: * Chief Complaints: * 1 . Knee pain. * HPI: K nee/Cho: 68 year old male presents with c/o knee pain l eft side. Pt states he has a small area of swelling on the back of his left knee with pain when flexing and bending his knee. Pt also c/o some pain in both heels that is worse when he gets up in the mornings. * ROS: D ERMATOLOGY: no R yisel. [...] tab(s) orally once a day , Taking CPAP machine and supplies as directed , Taking Sildenafil Citrate 20 MG Tablet 3 Orally As needed , Taking amLODIPine Besylate 2.5 MG Tablet 1 tablet Orally Once a day , Taking Tamsulosin HCl 0.4 MG Capsule 1 cap(s) orally once a day , Taking Indapamide 2.5 mg Tablet 1 tablet in the morning Orally Once a day , Taking Fluticasone Propionate 50 MCG/ACT Suspension INSTILL 2 SPRAYS IN EACH NOSTRIL EVERY DAY , Taking Ketoconazole 2 % Cream 1 trena applied topically once a day , Taking Montelukast Sodium 10 mg Tablet TAKE ONE TABLET BY MOUTH EVERY DAY , Taking Losartan Potassium 100 mg Tablet TAKE ONE TABLET BY MOUTH EVERY DAY , Not-Taking Ventolin HFA 108 (90 Base) MCG/ACT Aerosol Solution 2 inhalations Inhalation Three times a day , Discontinued Medrol 4 MG Tablet Therapy Pack as directed orally daily , Discontinued Promethazine-DM 6.25-15 MG/5ML Syrup 5 ml orally every 6 hours prn , Medication List reviewed and reconciled with the patient * Allergies: N .K.D.A. Objective: * Vitals: W t: 229.8, Temp: 98.1, BP: 132/72, HR: 63, Nurse: JOSE, Ht: 71, BMI:32.05. * Examination: G eneral Examination: General Appearance: N AD. K nee / Cho: Knee: l eft. I nspection: e ffusion: mild. P alpation: n o tenderness on joint lines or collateral ligaments, fullness in the popliteal fossa.?Range of motion: p ain at extremes of motion. M cmurray: n egative. D rawer test: n egative. Assessment: * Assessment: 1. E ffusion, left knee - M25.462 (Primary) 2 . P ain in right foot - M79.671 3 . P ain in left foot - M79.672 4 . B OK 32.0-32.9,adult - Z68.32 Plan: * Treatment: 2.?Pain in right foot?Imaging: X ray : Foot, right (Performed Date - 11/14/2024)?nothing acute* Tri Gonzales 11/16/2024 01 :12:21 PM > Patient informed of normal results. 3.?Pain in left foot?Imaging: X ray : Foot, left Notes: Home exercise program provided to patient?? * Procedure Codes: G 2211 Complex e/m visit add on, 3075F SYST BP GE 130 - 139MM HG, 3078F DIAST BP < 80 MM HG * Follow Up: v ia phone to report progress * Images: Billing Information: * Visit Code: 87504 Office Visit, Est Pt., Level 3. * Procedure Codes: G2211 Complex e/m visit add on. 3075F SYST BP GE 130 - 139MM HG. 3078F DIAST BP < 80 MM HG. * Electronic signature of Brenda Cedeño MD on 03/10/2025 at 07:32 AM EDT Sign off status: Pending * Provider: Lizette Cedeño M.D. Date: 0 11/14/2024 Generated for Minna leonardo/Bob/Rogelioransmitting on: 0 03/10/2025 07:32 AM EDT History and Physical Notes * HPI (History of Present Illness) Category Sub-Category Detail Notes Category Not es Knee/Cho knee pain left side. Pt st ates he has a small area of swelling on the back of his left knee with pain when flexing and bending his knee. Pt also c/o some pain in both heels that is worse when he gets up in the mornings Examination Category Sub-Category Detail Notes Category Not es General Examination General Appearance: NAD Knee / Cho Hu: negative Drawer test: negative Palpation: no tenderness on autumn nt lines or collateral ligaments, fullness in the popliteal fossa Knee: left Inspection: effusion: mild Range of motion: pain at extremes of motion
--- OUTSIDE RECORDS SUMMARY | 2025-02-24 05:45 | XMS_ITS ---
Author Organization [facility] Address [address] [place] [id number] Care Team Providers Care Senior Project Controls Specialist Name Role Phone Silas Ornelas Primary Care Provider [phone] Allergies No Known Allergies Results Component Value Reference Range Notes P-Comprehensive Metabolic Pa gloria (CMP) Reviewed date:02/28/2025 10:38:35 AM Interpretation:Normal Performing Lab: Notes/Report: Test performed by [email or web address] [address] [place], [place] [address] [place] , [address], [place] [address] Stanislav Bender MD, [employer] CLIA: [id number] Sodium 141 135-145 mmol/L Potassium 4.2 3.5-5.3 mmol/L Chloride 103 97-108 mmol/L CO2 28 20-32 mmol/L Glucose 99 65-99 mg/dL BUN 22 8-23 mg/dL Creatinine 1.13 0.70-1.30 mg/dL Calcium 9.9 8.6-10.4 mg/dL eGFR by Creatinine 71 >59 mL/min/1.73m2 Protein 6.6 6.0-8.3 g/dL Albumin 4.4 3.5-5.3 g/dL Alkaline Phosphatase 58 40-129 IU/L ALT (SGPT) 22 <5-55 IU/L AST (SGOT) 20 <5-46 IU/L Bilirubin, Total 0.3 <0.2-1.2 mg/dL A/G Ratio 2.0 1.1-2.5 P-Lipid Panel Reviewed date:02/28/2025 10:38:13 AM Interpretation:Normal Performing Lab: Notes/Report: Test performed by [email or web address] [address] [facility] , [address], [place] [address] Stanislav Bender MD, [employer] CLIA: [id number] Cholesterol 183 <200 mg/dL Triglycerides 77 <150 mg/dL HDL Cholesterol 64 >39 mg/dL Cholesterol / HDL Ratio 2.86 0.00-4.99 Ratio Non-HDL Cholesterol 119 <130 mg/dL LDL Cholesterol (Calculation) 104 <130 mg/dL LDL Cholesterol Levels* Less than 100 mg/dL Optimal 100 to 129 mg/dL Near Optimal/ Above Optimal 130 to 159 mg/dL Borderline High 160 to 189 mg/dL High 190 mg/dL and above Very High * Categories as recommended by the 2004 ATPIII guidelines LDL/HDL Ratio 1.6 <3.3 Ratio LDL Cholesterol Patient History Test Date: 02/24/2025 LDL Results: 104 Units: mg/dL % Change: - REASON FOR VISIT 6 month f/u, Needs Prevnar vaccine Medications Medication SIG (Take, Route, Frequency, Duration) Notes Start Date End Date Status Tamsulosin HCl 0.4 mg TAKE ONE CAPSULE B Y MOUTH EVERY DAY; Duration: 90 Active Sildenafil Citrate 20 MG 3 tablets Orall y As needed; Duration: 30 days Active Fluticasone Propionate 50 MCG/ACT INSTILL 2 SPRAYS IN EACH NOSTRIL EVERY DAY; Duration: 30 Active Indapamide 2.5 mg TAKE ONE TABLET BY MOUTH EVERY MORNING; Duration: 90 Active Ventolin HFA 108 (90 Base) MCG/ACT 2 inhalations Inhalation Three times a day 07/11/2024 Not-Taking Ketoconazole 2 % 1 trena applied topica lly once a day Active CPAP machine and supplies as directed 10/22/2023 Active Losartan Potassium 100 mg TAKE ONE TABLE T BY MOUTH EVERY DAY; Duration: 90 Active Montelukast Sodium 10 mg TAKE ONE TABLET BY MOUTH EVERY DAY; Duration: 90 Active amLODIPine Besylate 2.5 mg TAKE ONE TABLET BY MOUTH EVERY DAY; Duration: 90 Active Turmeric Curcumin 500 MG 2 cap(s) Orally daily Active Timolol Maleate (Once-Daily) 0.5 % 1 drop into each eye Ophthalmic each morning Active B-12 1000 MCG 1 tab(s) orally once a day; Duration: 30 day(s) 06/03/2021 Active Latanoprost 0.005 % 1 drop into each eye in the evening Ophthalmic at bedtime Active Vital Signs Blood pressure systolic 132 mm Hg 02/25/20 25 Blood pressure diastolic 78 mm Hg 025 Heart Rate 57 /min 02/24/2025 Height 71 in 02/24/2025 Weight 229.4 lbs 02/24/2025 BMI 31.99 kg/m2 02/24/2025 Encounters Encounter Location Date Provider Diagnosis [facility] [address] [id number] 02/24/2025 Silas Ornelas Synovial cyst of lef t popliteal space M71.22 ; Primary hypertension I10 ; Aortic ejection murmur I35.1 and Hyperlipidemia, unspecified hyperlipidemia type E78.5 Assessments Encounter Date Diagnosis (ICD Code) Assessment Notes Treatment Notes Treatment Clinical Notes Section Notes 02/24/2025 Synovial cyst of left popliteal space (ICD-10 - M71.22) knee brace/wrap recommended. Ortho referral prn 02/24/2025 Primary hypertension (ICD-10 - I10) 02/24/2025 Aortic ejection murmur (ICD-10 - I35.1) 02/24/2025 Hyperlipidemia, unspecified hyperlipidemia type (ICD-10 - E78.5) Plan Of Treatment Treatment Notes Assessment Notes Synovial cyst of left popliteal space kn ee brace/wrap recommended. Ortho referral prn Pending Test Test Name Order Date MRI : Knee, left, without contrast 02/24 Next Appt Details Follow Up: 3 Months, Reason: Provider Name:Silas Chun Rosa er, 05/29/2025 10:15:00 AM, [address], [place], [place], [id number], Progress Notes * RONEY GONZALESDOB:1955 ( 69 yo M)Acc No.[id number]:02/24/2025 Progress Notes Patient: RONEY JONES Provider: Silas Ornelas M.D. :1955 A ge:69 Y S ex:Male Date:02/24/2025 Address[place] [place] [address], [facility] Subjective: * Chief Complaints: * 1 . 6 month f/u. 2. Needs Prevnar vaccine. * HPI: C ardiology: The pt is here for a check up on Hypertension and Hyperlipidemia. Pt states he is still having some pain and swelling in the back of the l eft knee with flexing. Pt saw Dr Cedeño in October and had an xray. See pt docs. Pt is fasting. Denies : Chest Pain. D enies [...] with Hypertension. M other: alive, diagnosed with Heart Disease, Hypertension. P aternal Grand Father: . P aternal Grand Mother: , diagnosed with Stroke. M aternal Grand Father: . M aternal Grand Mother: , diagnosed with Stroke. Father of sepsis, cellulitis of leg. * Social History: C affeine: yes, frequency:two or three soft drinks or tea daily. Exercise: yes. Home smoke detector use: yes. Past smoking status: never smoked. * Medications: T billg Turmeric Curcumin 500 MG Capsule 2 cap(s) [...] machine and supplies as directed , Taking Ketoconazole 2 % Cream 1 trena applied topically once a day , Taking Montelukast Sodium 10 mg Tablet TAKE ONE TABLET BY MOUTH EVERY DAY , Taking Losartan Potassium 100 mg Tablet TAKE ONE TABLET BY MOUTH EVERY DAY , Taking amLODIPine Besylate 2.5 mg Tablet TAKE ONE TABLET BY MOUTH EVERY DAY , Taking Tamsulosin HCl 0.4 mg Capsule TAKE ONE CAPSULE BY MOUTH EVERY DAY , Taking Sildenafil Citrate 20 MG Tablet 3 tablets Orally As needed , Taking Indapamide 2.5 mg Tablet TAKE ONE TABLET BY MOUTH EVERY MORNING , Taking Fluticasone Propionate 50 MCG/ACT Suspension INSTILL 2 SPRAYS IN EACH NOSTRIL EVERY DAY , Not-Taking Ventolin HFA 108 (90 Base) MCG/ACT Aerosol Solution 2 inhalations Inhalation Three times a day * Allergies: N .K.D.A. Objective: * Vitals: W t: 229.4, Temp: 98.4, BP: 132/78, HR: 57, Nurse: JOSE, Ht: 71, BMI:31.99. * Examination: G eneral Examination: General Appearance: [...] B ack: mild dorsal kyphosis. E xtremities: M inimal leg edema, palpable cystic area of the posterior left knee c/w Mccray's cyst.. Assessment: * Assessment: 1. S ynovial cyst of left popliteal space - M71.22 (Primary) 2 . P rimary hypertension - I10 3 . A ortic ejection murmur - I35.1 4 . H yperlipidemia, unspecified hyperlipidemia type - E78.5 Plan: * Treatment: Notes: knee brace/wrap recommended. Ortho referral prn??2.?Primary hypertension?LAB: P-Comprehensive Metabolic Panel (CMP) (Collection Date & Time - 02/24/2025 06:30 AM)?Normal* Value Reference Range A /G Ratio 2.0 1.1-2.5 - * A lbumin 4.4 3.5-5.3 - g/dL * A lkaline Phosphatase 58 40-129 - IU/L * A LT (SGPT) 22 <5-55 - IU/L * A ST (SGOT) 20 <5-46 - IU/L * B ilirubin, Total 0.3 <0.2-1.2 - mg/dL * B UN 22 8-23 - mg/dL * C alcium 9.9 8.6-10.4 - mg/dL * C hloride 103 97-108 - mmol/L * C O2 28 20-32 - mmol/L * C reatinine 1.13 0.70-1.30 - mg/dL * G lucose 99 65-99 - mg/dL * P otassium 4.2 3.5-5.3 - mmol/L * S odium 141 135-145 - mmol/L * P rotein 6.6 6.0-8.3 - g/dL * e GFR by Creatinine 71 >59 - mL/min/1.73m2 * Tri Gonzales 02/28/2025 10: 38:33 AM EDT > Patient informed of normal results. 3.?Hyperlipidemia, unspecified hyperlipidemia type?LAB: P-Lipid Panel (Collection Date & Time - 02/24/2025 06:30 AM)?Normal* Value Reference Range C holesterol / HDL Ratio 2.86 0.00-4.99 - Ratio * C holesterol 183 <200 - mg/dL * H DL Cholesterol 64 >39 - mg/dL * L DL Cholesterol (Calculation) 104 <130 - mg/d L * L DL/HDL Ratio 1.6 <3.3 - Ratio * N on-HDL Cholesterol 119 <130 - mg/dL * T riglycerides 77 <150 - mg/dL * Tri Gonzales 02/28/2025 10: 38:09 AM EDT > Patient informed of normal results. * Follow Up: 3 Months * Images: Billing Information: * Visit Code: 14148 Office Visit, Est Pt., Level 3. * Procedure Codes: * Electronic signature of Silas Ornelas MD on 03/10/2025 at 07:31 AM EDT Sign off status: Pending * Provider: Silas Ornelas M.D. Date: 0 02/24/2025 Generated for Minna leonardo/Bob/eTransmitting on: 0 03/10/2025 07:31 AM EDT History and Physical Notes * [...] and nontender, no organomegaly or masses Extremities: Minimal leg edema, p alpable cystic area of the posterior left knee c/w Mccray's cyst. General Appearance: NAD Skin: normal Neurologic Exam: Intact, gait normal Neck: supple, no lymphaden opathy Oral cavity: no lesions, mucosa m oist and WNL, no erythema Peripheral pulses: normal Back: mild dorsal kyphosis Genitalia: Chest: normal shape and exp ansion
--- NOTE | 2025-03-10 07:31 | MR_ITS ---
FINAL REPORT TECHNIQUE: Multiplanar MR without contrast CLINICAL HISTORY: SYNOVIAL CYST OF LEFT POPLITEAL SPACE marker on posterior knee at cyst location FINDINGS: Articular cartilage: Grade III chondromalacia patella is noted greatest on the medial patellar facet. Moderate diffuse thinning of the articular cartilage is noted. Marrow signal: Unremarkable Joint fluid: Small to moderate joint effusion. Moderate size Mccray's cyst. The Mccray's cyst measures approximately 7.5 x 2.0 x 1.0 cm located deep to the marker denoting the area of the palpable abnormality. Small cyst along the anterior tibial spine posterior to the transverse meniscal ligament. Menisci: Moderate size tear of the lateral meniscal body and posterior horn. Medial meniscus intact. This is best visualized on coronal imaging. Medial meniscus intact. Ligaments: Collateral, cruciate and patellofemoral ligaments intact. Tendons: Quadriceps and patellar tendon unremarkable There is a multiloculated cystic lesion along the myotendinous junction of the popliteus. This measures up to 30 mm probably a ganglion cyst. IMPRESSION: 1. Lateral meniscal tear 2. Moderate degenerative changes 3. Moderate size Bakers cyst likely accounting for palpable abnormality in the posterior soft tissues Authenticated and [facility]N
--- OUTSIDE RECORDS SUMMARY | 2025-03-10 07:31 | XMS_ITS | Clinical Summary ---
[facility] Address [address] [place] [address] Care Team Providers Care Tie In Hand Name Role Phone Unavailable Primary Care Provider Unavailabl e Allergies No known active allergies Medications acetaminophen (TYLENOL) 500 MG tablet Take 500 mg by mouth Every 6 (Six) Hours As Needed for Mild Pain . Active Turmeric 500 MG capsule Take 2 capsules by mouth Daily. Active ketoconazole (NIZORAL) 2 % cream 0 Active triamcinolone (KENALOG) 0.1 % cream 0 Active tamsulosin (FLOMAX) 0.4 MG capsule 24 hr capsule Take 1 capsule by mouth Every Night. 90 capsule 3 0 Active losartan (Cozaar) 100 MG tablet Take 1 tablet by mouth Daily. 90 tablet 3 0 Active montelukast (SINGULAIR) 10 MG tablet Take 1 tablet by mouth Daily. 90 tablet 3 0 Active fluticasone (FLONASE) 50 MCG/ACT nasal spray 2 SPRAYS INTO THE NOSTRIL(S) DIRECTED BY PROVIDER DAILY 16 mL 4 0 Active indapamide (LOZOL) 2.5 MG tabletIndications :Essential hypertension TAKE 1 TABLET BY MOUTH EVERY MORNING. 90 tablet 3 1 Active Active Problems Problem Noted Date Diagnosed Date Essential hypertension 05/17/2018 RO treated with BiPAP 05/14/2016 Atopic rhinitis 03/21/2016 Immunizations Immunization Administration Dates Next Due Fluzone (or Fluarix & Flulaval for VFC) >6mos Fluzone High-Dose 65+YRS 04/05/2018 Fluzone Quad >6mos (Multi-dose) 04/22/2017,04/24 Hepatitis A 04/18/2019,07/19/2018 Shingrix 08/10/2020,04/23/2020 Tdap 05/18/2014 flucelvax quad pfs =>4 YRS 04/07/2019 Family History Medical History Relation Name Comments Hypertension Father Stroke Maternal Grandmother Coronary artery disease Mother Hypertension Mother Relation Name Status Comments Father Maternal Grandfather Maternal Grandmother Mother Alive Paternal Grandfather Paternal Grandmother Social History Tobacco Use Types Packs/Day Years Used Date Smoking Tobacco: Never Smokeless Tobacco: Never Tobacco Cessation:Counseling Given: Yes Alcohol Use Standard Drinks/Week Comments No 0 (1 standard drink = 0.6 oz pur e alcohol) PHQ-2 Answer Date Recorded PHQ-2 Score 0 05/11/2018 Abuse Screen Answer Date Recorded Unsafe at Home or Work/School Not on file Feels Threatened by Someone? Not on file 02/2023 Does Anyone Keep You from Co ntacting Others or Doint Things Outside the Home? Not on file 04/06/2023 Physical Sign of Abuse Present Not on file 1 Housing Stability Answer Date Recorded Current Living Arrangements Not on file 02/2023 Potentially Unsafe Housing Conditions Not on soco e 04/06/2023 Family and Community Support Answer Bobby e Recorded Help with Day-to-Day Activities Not on file 04/06/2023 Lonely or Isolated Not on file 04/06/2023 Employment Answer Date Recorded Do you want help finding or keeping work or a chuckie b? Not on file 04/06/2023 Disabilities Answer Date Recorded Concentrating, Remembering, or Making Decisions Difficulty Not on file 04/06/2023 Doing Errands Independently Difficulty Not on fi le 04/06/2023 Education Answer Date Recorded Help with school or training? Not on file Preferred Language Not on file 04/06/2023 Sex and Gender Information Value Date Recorded Sex Assigned at Not on file Legal Sex Male 10:39 AM EDT Gender Identity Not on file Sexual Orientation Not on file Last Filed Vital Signs Vital Sign Reading Time Taken Comments Blood Pressure 126/72 08/10/2020 1:28 PM EST Pulse 77 08/10/2020 1:28 PM EST Temperature 36.9 C (98.4 F) 08/10/2020 1:28 PM EST Respiratory Rate 16 08/10/2020 1:28 PM EST Oxygen Saturation 97% 08/10/2020 1:28 PM EST Inhaled Oxygen Concentration - - Weight 103 kg (226 lb) 08/10/2020 1:28 PM EST Height 182.9 cm (6') 08/10/2020 1:28 PM EST Body Mass Index 30.65 08/10/2020 1:28 PM EST Plan of Treatment Health Maintenance Due Date Last Done Comments COLOGUARD 2001 COLON CANCER SCREENING [address] COLONOGRAPHY 2001 FECAL OCCULT BLOOD TEST 2001 FIT Testing (1 year) 2001 Pneumococcal Vaccine 50+ (1 of 1 - PCV) 2006 ANNUAL PHYSICAL 04/18/2020 04/18/2019, 04/05/2018 AAA SCREEN ONCE 2021 TDAP/TD VACCINES (2 - Td or Tdap) 05/18/2024 05/18/2014, 05/18/2014 COVID-19 Vaccine ( - season) 2025 INFLUENZA VACCINE 03/29/2025 03/16/2020, , 04/06/2019, Additional history exists COLONOSCOPY 05/10/2028 05/10/2018, 10/23/2008 COLORECTAL CANCER SCREENING 05/10/2028 HEPATITIS C SCREENING Addressed 05/14/2016, 016 Overridden with the intention of not completing the topic ZOSTER VACCINE Completed 08/10/2020, 04/23/2020 Procedures Procedure Name Priority Date/Time Associated Diagnosis Comments SCANNED - INFLUENZA 04/06/2019 SCANNED - COLONOSCOPY 05/10/2018 HEPATITIS C ANTIBODY Routine 05/14/2016 9:49 AM EST Well adult exam from Last 3 Months or Most Recently Relevant to Health Maintenance Results * SCANNED - INFLUENZA (04/06/2019) Lb Gurrola MD CHART REVIEW TABS Final Re sult * SCANNED - COLONOSCOPY (05/10/2018) [facility] CHART REVIEW TABS Final Re sult * Hepatitis C Antibody (05/14/2016 9:49 AM EST) Hepatitis C Ab Non-Reacti ve Non-Reacti ve 05/14/2016 5:55 PM EST [facility] Blood Right upper arm structure / Unknown Venipuncture / Unknown 05/14/2016 9:49 AM EST 05/14/2016 9:49 AM EST Lb Gurrola MD LAB BLOOD ORDERABLES Final Re sult [facility]
[address] [place] [address], from Last 3 Months or Most Recently Relevant to Health Maintenance [place] [address] [place] [address]
--- OUTSIDE RECORDS SUMMARY | 2025-03-10 07:32 | XMS_ITS | Patient Health Record ---
[facility] Address [address] [facility] [address] [facility] [address] [place] [id number] Care Team Providers Care Engineer Of System Development Name Role Phone Silas Ornelas Primary Care Provider [phone] Jaqueline Robin Unavailable [phone] Rob Cedeño Unavailable [phone] Jason Elis Unavailable [phone] Allergies No Known Allergies Results Component Value Reference Range Notes P-Comprehensive Metabolic Pa gloria (CMP) Reviewed date:02/28/2025 10:38:35 AM Interpretation:Normal Performing Lab: Notes/Report: Test performed by [facility], [address] , [address], [place] [address] Stanislav Bender MD, [employer] CLIA: [id number] Sodium 141 135-145 mmol/L Potassium 4.2 3.5-5.3 [...] Interpretation:Normal Performing Lab: Notes/Report: Test performed by [facility], [address] , [address] , [place] [address] Stanislav Bender MD, [employer] CLIA: [id number] Cholesterol 183 <200 mg/dL Triglycerides 77 <150 [...] Results: 104 Units: mg/dL % Change: - X ray : Knee, left Reviewed date:11/16/2024 01:12:32 PM Interpretation:nothing acute Performing Lab: Notes/Report: nothing acute X ray : Foot, right Reviewed date:11/16/2024 01:12:32 PM Interpretation:nothing acute Performing Lab: Notes/Report: nothing acute Influenza Screen (in house) Reviewed date:07/11/2024 11:53:49 [...] Interpretation:Negative Performing Lab: Notes/Report: Negative Result: Neg P-Comprehensive Metabolic Pa gloria (CMP) Reviewed date:08/29/2024 11:39:27 AM Interpretation:Normal Performing Lab: Notes/Report: Test performed by [facility] [address] [place] [address] , [address], [place] [address] Stanislav Bender MD, [employer] CLIA: [id number] Sodium 142 135-145 mmol/L Potassium 4.0 3.5-5.3 [...] Interpretation:Normal Performing Lab: Notes/Report: Test performed by [facility] [address] [place] [address] , [address], [place] [address] Stanislav Bender MD, [employer] CLIA: [id number] PSA 0.53 <4.00 ng/mL Please note this is an ultrasensitive PSA assay with a lower limit of detection of 0.014 ng/mL. This test is performed by the [employer] ECLIA methodology. Values obtained with different assay methods or kits cannot be directly compared. Influenza Screen (in house) Reviewed date:07/13/2024 12:34:30 PM Interpretation:neg Performing Lab: Notes/Report: neg results neg CBC Fingerstick (in house) Reviewed date:07/13/2024 12:34:48 PM Interpretation: Performing Lab: Notes/Report: wbc 4.9 3.5 - 10 lym 20.9 15 - 50 mid 6.2 2 - 15 gran 72.9 35 - 80 rbc 4.40 3.5 - 5.5 hgb 14.0 11.5 - 16.5 hct 41.6 35 - 55 mcv 94.6 75 - 100 mch 31.8 25 - 35 mchc 33.6 31 - 38 plat 240 100 - 400 Covid test (in house) Reviewed date:07/13/2024 12:34:07 PM Interpretation:neg Performing Lab: Notes/Report: neg Result: neg Influenza Screen (in house) Reviewed date:06/22/2024 09:05:22 AM Interpretation: Performing Lab: Notes/Report: results Neg Covid test (in house) Reviewed date:06/22/2024 09:05:22 AM Interpretation: Performing Lab: Notes/Report: Result: Neg Reason For Referral No Information Medications Medication SIG (Take, Route, Frequency, Duration) Notes Start Date End Date Status Ketoconazole 2 % 1 trena applied topica lly once a day Active CPAP machine and supplies as directed 10/22/2023 Active Losartan Potassium 100 mg TAKE ONE TABLE T BY MOUTH EVERY DAY; Duration: 90 Active Montelukast Sodium 10 mg TAKE ONE TABLET BY MOUTH EVERY DAY; Duration: 90 Active Tamsulosin HCl 0.4 mg TAKE ONE CAPSULE B Y MOUTH EVERY DAY; Duration: 90 Active amLODIPine Besylate 2.5 mg TAKE ONE TABLET BY MOUTH EVERY DAY; Duration: 90 Active Turmeric Curcumin 500 MG 2 cap(s) Orally daily Active Sildenafil Citrate 20 MG 3 tablets Orall y As needed; Duration: 30 days Active Timolol Maleate (Once-Daily) 0.5 % 1 drop into each eye Ophthalmic each morning Active Fluticasone Propionate 50 MCG/ACT INSTILL 2 SPRAYS IN EACH NOSTRIL EVERY DAY; Duration: 30 Active Indapamide 2.5 mg TAKE ONE TABLET BY MOUTH EVERY MORNING; Duration: 90 Active B-12 1000 MCG 1 tab(s) orally once a day; Duration: 30 day(s) 06/03/2021 Active Latanoprost 0.005 % 1 drop into each eye in the evening Ophthalmic at bedtime Active Ventolin HFA 108 (90 Base) MCG/ACT 2 inhalations Inhalation Three times a day 07/11/2024 Not-Taking Immunizations Vaccine Route Administration Date Status Comme nts xFluzone High Dose-private (65yr&older) Unknown 04/05/2018 Administered xFlu shot- 6months-36 months of [id number] Unknown 04/22/2017 Administered Shingrix Unknown 04/23/2020 Administered Shingrix Unknown 08/10/2020 Administered Hepatitis A (adult) Unknown 07/19/2018 Administered Hepatitis A (adult) Unknown 04/18/2019 Administered Fluzone PF Quad (6-35 months) Unknown 03/16/2020 Administered Fluzone PF Quad (6-35 months) Unknown 05/09/2021 Administered Fluzone High Dose (65yr and older) IM Intramuscular 03/31/2022 Administered Fluzone High Dose (65yr and older) IM Intramuscular 03/26/2023 Administered Fluzone High Dose (65yr and older) IM Intramuscular 04/08/2024 Administered COVID 19 Moderna Unknown 08/23/2020 Administered COVID 19 Moderna Unknown 09/20/2020 Administered COVID 19 Moderna Unknown 05/19/2021 Administered Problems Problem Type SNOMED Code ICD Code Onset Dates Problem Status W/U Status Risk Notes Problem Vitamin B12 deficiency (553496355) Vitamin B12 deficiency (E53.8) Active confirmed Problem BMI 30+ - obesity (447789571) BMI 32.0-32.9,adult (Z68.32) Active confirmed Problem Slowing of urinary stream (48464228) Poor urinary stream (R39.12) Active confirmed Problem History of polyp of colon (situation) (874975212) Hx of colonic polyps (Z86.010) Active confirmed Problem Erectile dysfunction (disorder) (266024890) Erectile dysfunction, unspecified erectile dysfunction type (N52.9) Active confirmed Problem Hyperlipidaemia (44231649) Hyperlipidemia, unspecified hyperlipidemia type (E78.5) Active confirmed Problem Seborrheic dermatitis (10263718) Seborrheic dermatitis (L21.9) Active confirmed Problem Lower urinary tract symptoms due to benign prostatic hypertrophy (65767121010618) Benign prostatic hyperplasia with lower urinary tract symptoms (N40.1) Active confirmed Problem Aortic valve disorder (0192555) Aortic heart murmur (I35.8) Active confirmed Problem Allergic rhinitis (56853208) Non-seasonal allergic rhinitis, unspecified trigger (J30.89) Active confirmed Problem Aortic ejection murmur (093312326) Aortic ejection murmur (I35.1) Active confirmed Problem Primary hypertension (30619318) Primary hypertension (I10) Active confirmed Problem Obstructive sleep apnea syndrome (21061326) RO on CPAP (G47.33) Active confirmed Problem Pulmonary valve disorder (24169961) 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) Active confirmed Vital Signs Heart Rate 57 /min 02/24/2025 Blood pressure diastolic 78 mm Hg 02/24/2025 Height 71 in 02/24/2025 Blood pressure systolic 132 mm Hg 02/24/2025 Weight 229.4 lbs 02/24/2025 BMI 31.99 kg/m2 02/24/2025 Encounters Encounter Location Date Provider Diagnosis [facility] [address] [facility] [address] [place], [place] [id number] 04/08/2024 Silas Ornelas Encounter for immunization Z23 [facility] [address] [facility] [address] [place], [place] [id number] 06/21/2024 R Kike Robin URI (upper respirato ry infection) J06.9 [facility] [address] [place], [place] [id number] 07/11/2024 Silas Ornelas Acute cough R05.1 ; Aortic heart murmur I35.8 ; RO on CPAP G47.33 and Primary hypertension I10 [facility] [address] [place] [id number] 08/26/2024 Silas Ornelas Primary hypertension I10 ; Benign prostatic hyperplasia with lower urinary tract symptoms N40.1 ; Aortic heart murmur I35.8 and Pulmonic valve murmur I37.8 [facility] [address] [facility] [address] [place] [id number] 11/14/2024 Rob [place] Effusion, left knee M25.462 ; Pain in right foot M79.671 ; Pain in left foot M79.672 and BMI 32.0-32.9,adult Z68.32 [facility] [address] [place] [id number] 02/24/2025 Silas Ornelas Synovial cyst of lef t popliteal space M71.22 ; Primary hypertension I10 ; Aortic ejection murmur I35.1 and Hyperlipidemia, unspecified hyperlipidemia type E78.5 [facility] [address] [place] [id number] 07/13/2024 Elis Gomez Acute URI J06.9 [facility] [address] [place] [id number] 10/31/2024 Silas Ornelas Seborrheic dermatiti s L21.9 Assessments Encounter Date Diagnosis (ICD Code) Assessment Notes Treatment Notes Treatment Clinical Notes Section Notes 04/08/2024 Encounter for immunization (ICD-10 - Z23) 06/21/2024 URI (upper respiratory infection) (ICD-10 - J06.9) CBC machine out of order today 07/11/2024 Aortic heart murmur (ICD-10 - I35.8) 07/11/2024 Acute cough (ICD-10 - R05.1) 07/13/2024 Acute URI (ICD-10 - J06.9) 10/31/2024 Seborrheic dermatitis (ICD-10 - L21.9) 02/24/2025 Synovial cyst of left popliteal space (ICD-10 - M71.22) knee brace/wrap recommended. Ortho referral prn 11/14/2024 Effusion, left knee (ICD-10 - M25.462) 11/14/2024 Pain in right foot (ICD-10 - M79.671) 08/26/2024 Benign prostatic hyperplasia with lower urinary tract symptoms (ICD-10 - N40.1) 08/26/2024 Primary hypertension (ICD-10 - I10) 08/26/2024 Aortic heart murmur (ICD-10 - I35.8) 11/14/2024 Pain in left foot (ICD-10 - M79.672) Home exercise program provided to patient 02/24/2025 Primary hypertension (ICD-10 - I10) 07/11/2024 RO on CPAP (ICD-10 - G47.33) 07/11/2024 Primary hypertension (ICD-10 - I10) 11/14/2024 BMI 32.0-32.9,adult (ICD-10 - Z68.32) 02/24/2025 Aortic ejection murmur (ICD-10 - I35.1) 08/26/2024 Pulmonic valve murmur (ICD-10 - I37.8) 02/24/2025 Hyperlipidemia, unspecified hyperlipidemia type (ICD-10 - E78.5) Plan Of Treatment Pending Test Test Name Order Date MRI : Knee, left, without contrast 02/24 X ray : Foot, left 11/14/2024 Next Appt Details Provider Name:Silas Lee er, 05/29/2025 10:15:00 AM, [address], [address], [place], [place], [id number], Insurance Providers Payer Name Payer Address Payer Phone Subscriber Number Group Number Insured Name Patient Relationship to Insured Coverage Start Date Coverage End Date MEDICARE PART B [address] [address] [place] [id number] RONEY FAUST Self - patient is the insured [employer] [facility] [address] [place] [address] [id number] RONEY FAUST Self - patient is the insured Medications Administered Medication Instructions Date of Administration Dosage Notes B-12 08/19/2021 1 mL Pt tolerated w ell B-12 08/27/2021 1 mL B-12 09/10/2021 1 mL Medical (General) History Medical History History ICD Code Hypertension Seasonal allergies Osteoarthritis BPH carotid duplex 11/18/2021 echocardiogram 11/18/2021 Surgical History Surgery Date(Month/Year) Crushed Kidney Stones Appendectomy colonoscopy with polyp
== END 2025-03-10 23:59 | disposition home or self-care (01) ==
LOC: RAD 07:29
PROVIDERS: PCP Family Medicine; Visit Provider Family Medicine
DX: S83.282A Other tear of lateral meniscus, current injury, left knee, initial encounter (principal); M17.12 Unilateral primary osteoarthritis, left knee; M71.22 Synovial cyst of popliteal space [Baker], left knee
CPT/HCPCS: 73721